=== PATIENT | male | born 1990 | race Caucasian/White ===

== ENCOUNTER 2016-08-05 00:52 | Emergency (ER) | payer OTHER ==
[~2016-08-05] VITALS: Ht 175.3 cm; Wt 100.0 kg
[2016-08-05 00:54] VITALS: BP 134/86; PULSE 105; RESP 18; O2SAT 100
[2016-08-05] MEDS ORDERED: 0.9% Sodium Chloride 1,000 ML IV ONE (01:02)
--- NOTE | 2016-08-05 01:04 | ED.REPORT ---
HPI-Seizure Date of Service Aug 05, 2016 ED Provider: Dr. Satnam Tavares M.D. The patient is a 26 year old male with a history of anxiety and depression who presents to the ED via EMS accompanied by his parents after an episode of seizure-like activity just prior to arrival, while cooking dinner. The patient does not recall the incident but it was witnessed by his parents, who say it lasted approximately five minutes. EMS found the patient postictal and nauseated with a pulse of 110-120 and otherwise normal vital signs. He vomited once at home and was given 4mg Zofran IV and 4mg Zofran PO en route. The patient denies tongue injury, urinary incontinence, or other symptoms. He has never had similar symptoms in the past. The patient recently changed medication from Prozac to sertraline. Two weeks ago the patient stopped drinking alcohol after drinking an average of two bottles of wine per day for 2-3 years. At that time he experienced cravings and shakiness for a couple of days but no other withdrawal symptoms. The patient presents symptom-free. Nursing Notes Stated Complaint: SEIZURE Chief Complaint: Seizure Nursing Notes Reviewed: Yes Allergies: Coded Allergies: No Known Allergies (Unverified , 08/05/16) General Time Seen by Provider: 01:03 Chief Complaint Chief Complaint: Seizure, generalized Hx Obtained From: Patient Arrived By: Walk-in Onset Occurred: Just prior to arrival Symptom Duration: 1 - 15 minutes Severity: Current: No pain currently Severity: Maximum: No pain Related History: Reports: Psychiatric history Immunizations: Unknown Recent Healthcare: No recent doctor visit Similar Sx Previous: No Past Medical History Past Medical History Depression Anxiety Past Surgical History None reported Smoking History Unknown if Ever Smoker Social History Alcohol Use: In recovery Other Social History: Good social support Ambulatory Status Independent Review of Systems Review of Systems Note: - Tongue injury Constitutional: Denies: Fever Respiratory: Denies: Non-productive cough, Shortness of breath Neurologic: Reports: Seizure, Denies: Bladder dysfunction Complete sys rev & neg: except as marked. GI: Reports: Nausea, Vomiting (x1) Male: Denies Incontinence Psychiatric: Reports: Change mental status (Postictal) Physical Exam Initial Vital Signs Vital Signs (First) Date Time Temp Pulse Resp B/P Pulse Ox O2 Delivery O2 Flow Rate FiO2 08/05/16 00:54 36.7 105 18 134/86 100 Room Air Initial VS: Reviewed, Vital signs abnormal Head / Eyes: Atraumatic, Normocephalic Abdomen / GI: Soft, Non-tender Skin: Warm, Dry, No cyanosis Psychiatric: Mood/affect normal, Behavior normal, Normal thought content General/Constitutional: Awake, Alert, No acute distress Neck: Supple, Full range of motion Respiratory / Chest: Breath sounds NL, Breath sounds = bilat, No respiratory distress Cardiovascular: Heart rate NL, Regular rhythm, Heart sounds NL Neurologic: Oriented X3, Speech NL, No motor deficits, No sensory deficits ENT: Airway patent, Mucous membranes moist, Pharynx NL Trauma - ENT Specific: Negative: Tongue injury Interpretation & Diagnostics URINE DRUG SCREEN: Negative Lab Results Interpretation Result Diagram: 08/05/16 0103 08/05/16 0103 Test 08/05/16 01:02 08/05/16 01:03 08/05/16 02:50 Hold Purple Top Tube Received (Received) Hold Blue Top Tube Received (Received) Hold Red Top Tube Received (Received) Hold Mikana Top Tube Received (Received) White Blood Count 10.9th/mm3 (3.8-10.1) Red Blood Count 5.03mil/mm3 (4.40-5.80) Hemoglobin 14.8g/dL (13.8-17.2) Hematocrit 41.4% (41.0-50.0) Mean Corpuscular Volume 82.3fL (81-100) Mean Corpuscular Hemoglobin 29.4pg (27.0-35.0) Mean Corpuscular Hemoglobin Concent 35.7% (32.0-37.0) Red Cell Distribution Width 12.4% (12.3-15.4) Platelet Count 394bil/L (150-400) Neutrophils (%) (Auto) 58.2% (40-74) Lymphocytes (%) (Auto) 29.7% (14-46) Monocytes (%) (Auto) 8.9% (4-12) Eosinophils (%) (Auto) 0.9% (0-5) Basophils (%) (Auto) 0.5% (0-3) Sodium Level 136mEq/L (134-144) Potassium Level 4.0mEq/L (3.5-5.2) Chloride Level 99mEq/L (97-108) Carbon Dioxide Level 13mmol/L (18-29) Blood Urea Nitrogen 16mg/dL (6-20) Creatinine 1.02mg/dL (0.76-1.27) Estimat Glomerular Filtration Rate 93mL/min (>59) Glucose Level 117mg/dL (60-99) Calcium Level 9.4mg/dL (8.5-10.1) Total Bilirubin 0.3mg/dL (0.0-1.2) Aspartate Amino Transf (AST/SGOT) 27U/L (0-50) Alanine Aminotransferase (ALT/SGPT) 29U/L (0-44) Alkaline Phosphatase 74U/L (25-150) Total Protein 7.8g/dL (6.4-8.4) Albumin 4.6g/dL (3.4-5.0) Alcohols < 10mg/dL (0-10) Urine Color Yellow (YELLOW) Urine Appearance Clear (CLEAR,HAZY) Urine pH 6.0 (5.0-8.0) Urine Specific [place] 1.010 (1.003-1.035) Urine Protein Tracemg/dL (NEG,TRACE) Urine Glucose (UA) Negativemg/dL (NEGATIVE) Urine Ketones Negativemg/dL (NEGATIVE) Urine Occult Blood Negative (NEGATIVE) Urine Nitrite Negative (NEGATIVE) Urine Bilirubin Negative (NEGATIVE) Urine Urobilinogen Normalmg/dL (NORMAL) Urine Leukocyte Esterase Negative (NEGATIVE) Urine RBC 0-2/hpf (0-2) Urine WBC 0-5/hpf (0-5) Urine Epithelial Cells Occasional/hpf (NONE-MOD) Urine Crystals None seen (NONE SEEN) Urine Bacteria None/hpf (NONE-FEW) Urine Hyaline Casts None/lpf (NONE) Urine Granular Casts None seen (NONE SEEN) Urine Waxy Casts None seen (NONE SEEN) Urine Red Blood Cell Casts None seen (NONE SEEN) Urine White Blood Cell Casts None seen (NONE SEEN) Urine Mucus None seen (None Seen) Urine Trichomonas None seen (NONE SEEN) Urine Yeast None (NONE SEEN) Urinalysis Comment Lab values outside NL range: no clinical significance. ECG Interpretation ECG Interpretation: Sinus tachycardia rate 112 Time: 01:28 Interpreted by: ED physician CT Head Interpretation CONCLUSION: No acute intracranial abnormality. Report transmitted to the ED by radiologist Ruddy Guillen M.D. at 08/05/2016 - 1:59:54 AM PDT Study: Head CT no contrast Interpretation / Wet Read by: Interpret - Radiologist Re-Eval/Medical Decision Med Decision/Clinical Course 26-year-old whose witnessed him to have about a 5 minute grand mal seizure. He has never had a seizure before. He just stopped drinking about 2 weeks ago. He had minimal withdrawal symptoms. Labs are normal. CT scan of his head is normal. The most likely cause of his seizure I feel would be alcohol withdrawal related but that timeframe is not perfect for that. He will be discharged home and follow-up with his regular provider for further evaluation and treatment. Return to the emergency room if there is another seizure. Re-Evaluation/Progress : Time of Eval: 03:41 Patient Status: Condition improved Re-Evaluation/Progress Note: Discussed with patient CT and lab results, diagnosis, and plan for discharge. Follow-up and return to the ER instructions given. Patient agrees with plan for care and all questions were addressed. Counseled Regarding: Diagnosis, Lab results, Need for follow-up, When/why to return to ED Discharge & Departure Impression: Primary Impression: New onset seizure Disposition: Home Discharge Condition All VS Reviewed: Yes Condition: Improved Patient Instructions: Generalized Tonic Clonic Seizures (DC) Additional Instructions: The CT scan of your head is normal. There are still no significant lab abnormalities. I suspect that this seizure may be due to the fact that you stop drinking although that was a longer ago than I would expect for this problem to occur, and you are not having other withdrawal symptoms to speak of. Follow-up with Dr. Loera tomorrow morning to schedule an appointment to discuss this and possibly get MRI and EEG. Referrals: Ridge Loera MD Attestation Portions of this note were transcribed by Kae Luis. I, Dr. Tavares, personally performed the history, physical exam, and medical decision-making; I reviewed and confirmed the accuracy of the information in the transcribed note. Signed by: Maryellen Armas, 08/05/2016, 04:40 copies to: Ridge Loera MD, Howard L MD Aug 05, 2016 01:04 KAE LUIS Aug 05, 2016 01:11
[2016-08-05 01:09] LABS: BASOPHILS % (AUTO) 0.5 % (0-3); EOSINOPHILS % (AUTO) 0.9 % (0-5); MONOCYTES % (AUTO) 8.9 % (4-12); Mean Corpuscular Hemoglobin 29.4 pg (27.0-35.0); Mean Corpuscular Volume 82.3 fL (81-100); NEUTROPHILS % (AUTO) 58.2 % (40-74); Platelet Count 394 bil/L (150-400)
[2016-08-05 03:06] LABS: APPEARANCE,URINE CLEAR (CLEAR,HAZY); COLOR,URINE YELLOW (YELLOW)
[2016-08-05 03:07] LABS: OCCULT BLOOD,URINE NEGATIVE (NEGATIVE); UROBILINOGEN,URINE NORMAL (NORMAL)
[2016-08-05 03:57] VITALS: BP 126/78; PULSE 109; RESP 16; O2SAT 99
--- NOTE | 2016-08-05 10:42 | DRSVH ---
PROCEDURE: CT BRAIN WITHOUT CONTRAST ([id number]) INDICATIONS: new onset seizure TECHNIQUE: Noncontrast 4.5 mm thick angled axial sections acquired from the foramen magnum to the vertex, with c oronal reformats. COMPARISON: None. FINDINGS: Image quality: Excellent. CSF spaces: Basal cisterns are patent. No extra-axial fluid collections. Ventricles are normal in size and shape. Brain: No midline shift. No intracranial masses or hemorrhage. Tatum-white matter interface is norm al. Skull and face: Calvarium and visualized facial bones are intact, without suspicious lesions. Sinuses: Visualized sinuses and mastoids are clear. IMPRESSION: No acute intracranial disease process. Dictated by: Mag Allred MD, PhD on 08/05/2016 at 10:39 Approved by: Mag Allred MD, PhD on 08/05/2016 at 10:40
== END 2016-08-05 04:00 | disposition home or self-care (01) ==
LOC: SED 00:52
DX: R56.9 Unspecified convulsions (principal); F41.9 Anxiety disorder, unspecified; F32.9 Major depressive disorder, single episode, unspecified
CPT/HCPCS: 36415; 70450; 80053; 81001; 81002; 85025; 93005; 96360; 99285; G0480; J7030